=== PATIENT | female | born 1990 | race Caucasian/White ===

== ENCOUNTER 2020-10-02 08:59 | Outpatient (REF) | payer OTHER, SELFPAY ==
[2020-10-02 11:14] LABS: MANUAL DIFF FLAG NO
[2020-10-02 11:34] LABS: Basophils Percent Auto 0.4 % (0-2); Eosinophils Absolute Auto 0.2 X10*3/uL (0.0-0.4); Eosinophils Percent Auto 4.8 % (0-4); Hemoglobin 13.7 g/dl (12.0-16.0); Imm Gran Abs Auto 0.01 X10*3/uL (0.00-0.03); Imm Gran Pct Auto 0.2 % (0.0-0.4); Lymphocytes Absolute Auto 1.8 X10*3/uL (1.2-4.9); Lymphocytes Percent Auto 37.3 % (20-40); Mean Corpuscular HGB Conc 33.4 g/dl (31.0-35.0); Mean Corpuscular Hemoglobin 30.4 pg (27.0-33.0); Mean Corpuscular Volume 91.1 fL (80-98); Mean Platelet Volume 10.7 fL (9.4-12.3); Monocytes Absolute Auto 0.5 X10*3/uL (0.1-1.2); Monocytes Percent Auto 9.9 % (2-11); Neutrophils Absolute Auto 2.3 X10*3/uL (2.0-8.3); Neutrophils Percent Auto 47.4 % (45-73); Platelet Count 218 X10*3/uL (160-400); Red Cell Distribution Width 12.9 % (11.0-16.0); White Blood Count 4.8 X10*3/uL (4.8-10.8)
[2020-10-02 11:56] LABS: Alanine Aminotransferase 14 U/L (0-31); Albumin Level 4.5 g/dL (3.5-5.0); Alkaline Phosphatase 56 U/L (39-117); Anion Gap 15 (12-20); Aspartate Amino Transferase 15 U/L (5-31); Bilirubin Total 0.4 mg/dL (0.0-1.0); Blood Urea Nitrogen 11 mg/dL (9-16); Calcium 9.1 mg/dL (8.4-10.2); Carbon Dioxide 21 mmol/L (22-29); Chloride 108 mmol/L (96-108); Cholesterol 176 mg/dL; Estimated Glomerular Filt Rate > 60; Glucose Fasting 89 mg/dL (60-99); HDL Cholesterol 56 mg/dL; LDL Cholesterol Calculated 96 mg/dl; Potassium 4.6 mmol/L (3.3-5.1); Sodium 139 mmol/L (135-145); Total Protein 7.4 g/dL (6.5-8.0); Triglycerides 122 mg/dL
[2020-10-02 12:00] LABS: TSH reflex Free T4 1.42 uIU/mL (0.32-4.0)
== END 2020-10-02 09:00 | disposition home or self-care (01) ==
LOC: HO.HMGCLDS 08:59
PROVIDERS: PCP Family Medicine; Visit Provider Family Medicine
DX: Z00.00 Encounter for general adult medical examination without abnormal findings (principal)
CPT/HCPCS: 36415; 80053; 80061; 84443; 85025

== ENCOUNTER 2020-10-11 15:25 | Outpatient (REF) | payer OTHER, SELFPAY ==
--- NOTE | ~2020-10-11 | US_ITS ---
EXAMINATION: US THYROID CLINICAL INFORMATION: Localized swelling, mass and lump, neck. COMPARISON: None TECHNIQUE: Linear transducer grayscale and color Doppler examination with attention to the region of the thyroid. FINDINGS: SIZE: Measurements of the thyroid lobes and nodules are given in sagittal, anteroposterior and transverse dimensions respectively. Right Thyroid Lobe: 4.9 x 1.5 x 1.5 cm, volume 5.8 mL. Parenchyma: The gland echotexture is homogeneous. Thyroid vascularity is normal. Left Thyroid Lobe: 5.9 x 1.7 x 1.6 cm, volume 8.4 mL. Parenchyma: The gland echotexture is homogeneous. Thyroid vascularity is normal. Isthmus: 0.4 cm in maximum AP dimension. No focal thyroid nodule is seen. NODES: No lymphadenopathy is seen in the tissue surrounding the thyroid gland. US/US thyroid IMPRESSION: Borderline thyromegaly. Thyroid otherwise homogeneous, no thyroid nodules found. ACR TI-RADS RECOMMENDATION REFERENCE: Ultrasound-guided fine-needle aspiration, followup ultrasound, no further follow up. * TR1 (0 point) and TR 2 (2 points): No FNA or follow up * TR3 (3 points): FNA if more than or equal to 2.5 cm in maximum dimension, followup ultrasound in 1, 3 and 5 years if 1.5 to 2.4 cm in maximum dimension. * TR4 (4-6 points): FNA if more than or equal to 1.5 cm in maximum dimension, followup ultrasound in 1, 2, 3 and 5 years if 1 to 1.4 cm in maximum dimension. * TR5 (more than or equal to 7 points): FNA if more than or equal to 1 cm in maximum dimension, followup ultrasound every year for 5 years if 0.5 to 0.9 cm in maximum dimension. * TR3, TR4 or TR5 nodules that are below the size threshold for follow up receive no follow up.
== END 2020-10-11 15:26 | disposition home or self-care (01) ==
LOC: HO.HMGCX 15:25
PROVIDERS: PCP Family Medicine; Visit Provider Family Medicine
DX: R22.1 Localized swelling, mass and lump, neck (principal)
CPT/HCPCS: 76536

== ENCOUNTER 2021-02-19 11:00 | Outpatient (RCR) | payer OTHER, SELFPAY ==
--- NOTE | 2021-01-30 10:45 | MHC.PT.EP ---
[facility] [place] [facility] [place] [facility] [place] Office [address] [phone] F: [phone] F: [phone] F: [phone] F: [phone] Physical Therapy Plan of Care Date of Evaluation: Date of Surgery: Diagnosis: Assessment: pt is a 30/yo F referred to PT for eval/treat of pain in L knee. S/S are consistent knee/patellar dysfunction resulting in decreased mary for sitting w/ leg crossed for duration, difficulty w/ bed mobility, and mary for standing secondary to patellar maltracking, decreased hip strength, and hyperactive VL. Pt is deemed an appropriate candidate to receive skilled PT in order to address her physical limitations to improve her functional ability. Frequency and Duration: The patient will be seen 2x/wk for 5wk Short Term Goals: initiate HEP w/ compliance pt will mary sitting for 30 mins w little to no difficulty I with pt ed - bed mobility and postural changes for sitting Long-Term Goals: pt will report rolling over in bed w/ little to no difficulty; initial - quite a bit of difficulty (LEFI) pt will be able to sit for over an hour w/ leg crossed w/ little to no difficulty; initial quite a bit of difficulty (LEFI) MMT of knee flexor 5/5; initial 4/5 Treatment Plan: Modalities to reduce pain, spasms and effusion. Manual therapy to restore motion and function. Therapeutic exercise to improve strength and flexibility. Neuromuscular re-education for posture and balance. Therapeutic activities to return to functional activities of daily living. Electronically signed by: Felix Rosario PT Please sign and return to therapist. Thank you for your referral.
--- NOTE | 2021-10-14 14:55 | MHC.PT.DC ---
[facility] [place] [facility] [place] [facility] [place] [facility] [address]o Liu [address] [phone] F: [phone] F: [phone] F: [phone] F: [phone] Physical Therapy Discharge Report Diagnosis: L knee pain Date of Surgery: Date of Evaluation: 01/30/21 Date of Discharge: 10/14/21 Treatments to Date: 4 Cancellations to Date: 2 No Shows to Date: 1 Discharge Status: Visit Non-compliance Discharge Summary: Pt did not follow up with therapy after 2 cancellations and a no sow. Electronically signed by: Felix Rosario PT. Please sign and return to therapist. Thank you for your referral.
== END 2021-10-14 14:55 | disposition home or self-care (01) ==
LOC: HO.PTCHIC 11:00
PROVIDERS: PCP Family Medicine; Visit Provider Family Medicine
DX: M25.562 Pain in left knee (principal)
CPT/HCPCS: 97110; 97140; 97161